=== PATIENT | male | born 1995 | race Hispanic/Latino ===

== ENCOUNTER → 2023-02-02 | Outpatient (CLI) | payer MEDICAID | END | disposition home or self-care (01) | LOC: RAH 08:31 | PROVIDERS: ATTEND Nurse Practitioner Family | DX: N20.0 Calculus of kidney (principal); R10.9 Unspecified abdominal pain | CPT/HCPCS: 76700 ==

== ENCOUNTER → 2024-08-08 | Outpatient (CLI) | payer MEDICAID ==
--- NOTE | 2024-08-08 12:23 | HMCIMG ---
FEMUR 2VW RIGHT REASON: LEG PAIN, RIGHT TECHNIQUE: 4 views were obtained. FINDINGS: There is no evidence of fracture or dislocation. There is no joint effusion. The soft tissues appear unremarkable. There is no evidence of a radiopaque foreign body. IMPRESSION: No acute findings.
--- NOTE | 2024-08-08 12:23 | HMCIMG ---
US ABDOMINAL COMPLETE REASON: unspecified abd pain COMPARISON: None FINDINGS: There is mild fatty infiltration of the liver. There are no focal mass lesions. The liver is not enlarged.There is a normal-appearing gallbladder. Kidneys appear normal in size and appearance. There is no evidence of mass, stone or hydronephrosis. Spleen and common duct appear normal. Aorta and inferior vena cava appear normal. The pancreas appears normal as well. IMPRESSION: 1. Mild fatty infiltration of the liver. 2. Otherwise unremarkable abdomen sonogram.
== END | disposition home or self-care (01) ==
LOC: RAH 08:26
PROVIDERS: ATTEND Nurse Practitioner Family
DX: K76.0 Fatty (change of) liver, not elsewhere classified (principal); R10.9 Unspecified abdominal pain; M79.604 Pain in right leg
CPT/HCPCS: 73552; 76700